=== PATIENT | female | born 1985 ===

== ENCOUNTER 2018-08-24 12:15 | Inpatient (IN) | payer OTHER ==
[~2018-08-24] VITALS: Ht 175.3 cm; Wt 68.5 kg
[~2018-08-24 12:15] MED LIST: CODE1TAB37 PO; DOCUSATE SODIU100 MG PO; Mylicon 125MG PO
[2018-08-31] MEDS ORDERED: TRAM1TAB98 PO (06:57)
[2018-08-31] MEDS ORDERED: GAS RELIEF125 MG PO (06:57)
[2018-08-31] MEDS ORDERED: ACETAMINOPHEN500 M1 PO (06:57)
[2018-08-31] MEDS ORDERED: GABAPENTIN600 MG PO (06:57)
[2018-08-31] MEDS ORDERED: POLY119PG PO (06:57)
== END 2018-08-31 08:49 | disposition home or self-care (01) | DRG 743 ==
LOC: O/R 08-29 06:07 → OB/GYN 08-29 06:07 → SURH 08-29 09:30 → OB/GYN 08-29 10:34 → SURH 08-29 12:15 → OB/GYN 08-31 08:49
PROVIDERS: ADMIT Obstetrics & Gynecology
PROC: 0UT90ZZ Resection of Uterus, Open Approach (ICD-10-PCS; principal; 2018-08-29 09:30)
DX: N84.0 Polyp of corpus uteri (principal); D25.9 Leiomyoma of uterus, unspecified; N73.6 Female pelvic peritoneal adhesions (postinfective); N72 Inflammatory disease of cervix uteri; D26.1 Other benign neoplasm of corpus uteri

== ENCOUNTER 2023-01-18 07:22 | Inpatient (IN) | payer OTHER ==
[~2023-01-18 07:22] MED LIST changes: +ACETAMINOPHEN500 M1 PO; +CLARITIN10 M1 PO; +GABAPENTIN600 MG PO; +GAS RELIEF125 MG PO; +POLY119PG PO; +TRAM1TAB98 PO
== END 2023-01-19 10:52 | disposition home or self-care (01) | DRG 743 ==
LOC: CIR.AMB 07:22 → OB/GYN 16:38
PROVIDERS: ADMIT Obstetrics & Gynecology; ATTEND Obstetrics & Gynecology
PROC: 0DNN4ZZ Release Sigmoid Colon, Percutaneous Endoscopic Approach (ICD-10-PCS; 2023-01-18)
PROC: 0DN84ZZ Release Small Intestine, Percutaneous Endoscopic Approach (ICD-10-PCS; 2023-01-18)
PROC: 0UT64ZZ Resection of Left Fallopian Tube, Percutaneous Endoscopic Approach (ICD-10-PCS; principal; 2023-01-18 08:30)
DX: N83.12 Corpus luteum cyst of left ovary (principal); N83.02 Follicular cyst of left ovary; N73.6 Female pelvic peritoneal adhesions (postinfective); Z20.822 Contact with and (suspected) exposure to COVID-19